=== PATIENT | female | born 1985 | race Native Hawaiian/Other Pacific Islander ===

== ENCOUNTER 2018-05-18 22:17 | Emergency (ER) | payer BC, OTHER ==
--- NOTE | 2018-05-18 22:48 | C.PDOC ---
Time Seen by Provider: 05/18/18 22:48 Chief Complaint (Nursing): Abnormal Skin Integrity Past Medical History Vital Signs: Last Vital Signs Temp 97.4 F L 05/18/18 22:24 Pulse 120 H 05/18/18 22:24 Resp 16 05/18/18 22:24 BP 125/91 H 05/18/18 22:24 Pulse Ox 96 05/18/18 22:24 - Medical History PMH: Diabetes (IDDM), HTN Denies: Atrial Fibrillation, Cardia Arrhythmia, CHF, Hypercholesterolemia, Kidney Stones, Mitral Valve Prolapse, Peripheral Edema, Chronic Kidney Disease Surgical History: Denies: Pacemaker - [facility] Procedures HEMODIALYSIS (04/19/14) INCIS W REM OF FORIEGN BODY OR DEV FROM SKIN & SUBCUT TISSUE (04/19/14) VENOUS CATHETERIZATION FOR RENAL DIALYSIS (04/19/14) Family History: States: Unknown Family Hx - Social History Hx Tobacco Use: Yes Hx Alcohol Use: Yes Hx Substance Use: No - Immunization History Hx Tetanus Toxoid Vaccination: No Hx Influenza Vaccination: Yes Hx Pneumococcal Vaccination: Yes ED Course And Treatment O2 Sat by Pulse Oximetry: 96 Disposition Counseled Patient/Family Regarding: Studies Performed, Diagnosis - Disposition Disposition Time: 22:48
[2018-05-18] MEDS ORDERED: Sodium Chloride 0.9% 1,000 ML IV ONE (22:53)
[2018-05-18] MEDS ORDERED: DiphenhydrAMINE 50 mg/ml Inj IVP STA (22:53)
--- NOTE | 2018-05-18 22:54 | C.PDOC ---
History Of Present Illness pt developed diffuse urticarial rash today., Unknown etiology. Speaking in complete sentences. No f/c, some nausea/. Tolerating po Time Seen by Provider: 05/18/18 22:48 Chief Complaint (Nursing): Abnormal Skin Integrity History Per: Patient History/Exam Limitations: no limitations Onset/Duration Of Symptoms: Hrs Current Symptoms Are (Timing): Still Present Context: Other Possible Cause: Unknown Associated Symptoms: Skin Rash, Itching Home/EMS Treatment: None Severity: Moderate Pain Scale Rating Of: 5 Recent travel outside of the [place]: No Additional History Per: Family Past Medical History Reviewed: Historical Data, Nursing Documentation, Vital Signs Vital Signs: Last Vital Signs Temp 97.4 F L 05/18/18 22:24 Pulse 120 H 05/18/18 22:24 Resp 16 05/18/18 22:24 BP 125/91 H 05/18/18 22:24 Pulse Ox 96 05/18/18 22:24 - Medical History PMH: Diabetes (IDDM), HTN Denies: Atrial Fibrillation, Cardia Arrhythmia, CHF, Hypercholesterolemia, Kidney Stones, Mitral Valve Prolapse, Peripheral Edema, Chronic Kidney Disease Surgical History: Denies: Pacemaker - [facility] Procedures HEMODIALYSIS (04/19/14) INCIS W REM OF FORIEGN BODY OR DEV FROM SKIN & SUBCUT TISSUE (04/19/14) VENOUS CATHETERIZATION FOR RENAL DIALYSIS (04/19/14) Family History: States: No Known Family Hx - Social History Hx Tobacco Use: Yes Hx Alcohol Use: Yes Hx Substance Use: No - Immunization History Hx Tetanus Toxoid Vaccination: No Hx Influenza Vaccination: Yes Hx Pneumococcal Vaccination: Yes Review Of Systems Constitutional: Negative for: Fever, Chills ENT: Negative for: Throat Pain Cardiovascular: Negative for: Chest Pain Respiratory: Negative for: Shortness of Breath Gastrointestinal: Negative for: Abdominal Pain Musculoskeletal: Negative for: Back Pain Skin: Positive for: Rash, Lesions Neurological: Negative for: Weakness Psych: Negative for: Anxiety Physical Exam - Physical Exam Appears: Non-toxic Skin: Warm, Dry, Rash (diffuse uritcaria) Head: Normacephalic Eye(s): bilateral: Normal Inspection Nose: Normal Oral Mucosa: Moist Tongue: Normal Appearing Lips: Normal Appearing Teeth: Normal Dentition Throat: No Erythema, No Exudate, No Drooling Neck: Trachea Midline, Supple Chest: Symmetrical Cardiovascular: Rhythm Regular Respiratory: No Rales, No Rhonchi, No Wheezing Gastrointestinal/Abdominal: Soft, No Tenderness Back: No CVA Tenderness, Other (uritcaria) Extremity: Normal ROM, Other (urticaria) Extremity: Bilateral: Atraumatic Neurological/Psych: Oriented x3, Normal Speech, Normal Cognition Gait: Steady ED Course And Treatment O2 Sat by Pulse Oximetry: 96 Pulse Ox Interpretation: Normal Critical Care Time - Critical Care Note Total Time (in mins): 30 Documented critical care: time excludes all time spent performing seperately billable procedures. Disposition Counseled Patient/Family Regarding: Studies Performed, Diagnosis, Need For Followup, Rx Given - Disposition Referrals: [facility] [Outside] [facility] [Outside] Disposition: HOME/ ROUTINE Disposition Time: 22:54 Condition: FAIR Additional Instructions: Please return if symptoms recur. Also check your sugars at least 4 times a day. Do also use benadryl, pepcid and claritin Prescriptions: Epinephrine [Epipen] 0.3 mg IJ ONCE PRN #2 auto.injct PRN Reason: Anaphylaxis Prednisone [Deltasone] 20 mg PO DAILY #5 tablet Instructions: Skin Rash (DC), Hyperglycemia, Adult (DC) Forms: [facility] (Frisian) - Clinical Impression Clinical Impression: Allergic reaction, Hyperglycemia
[2018-05-19 00:34] VITALS: RESP 20
[2018-05-19] MEDS ORDERED: (Novolin R) Insulin Human Regular 100 units/ml vial SC ONE (01:04)
[2018-05-19] MEDS ORDERED: (Novolin R) Insulin Human Regular 100 units/ml vial ONE (01:06)
[2018-05-19 02:57] VITALS: BP 117/81; PULSE 103; TEMP 98.7; O2SAT 99
== END 2018-05-19 03:01 | disposition home or self-care (01) ==
LOC: C.ER 22:17
DX: T78.40XA Allergy, unspecified, initial encounter (principal); E11.65 Type 2 diabetes mellitus with hyperglycemia; I10 Essential (primary) hypertension; Z79.4 Long term (current) use of insulin; Z72.0 Tobacco use
CPT/HCPCS: 82948; 96361; 96374; 96375; 99285; J2930; J7030

== ENCOUNTER 2018-05-20 10:23 | Emergency (ER) | payer OTHER ==
[2018-05-20 10:37] VITALS: BMI 32.8
[2018-05-20 10:42] VITALS: RESP 18
[2018-05-20] MEDS ORDERED: Dexamethasone 4 mg/1 ml IM STA (11:30)
--- NOTE | 2018-05-20 11:48 | C.PDOC ---
History Of Present Illness 33-year-old female, presents to the emergency department with complaints of an itchy red rash all over her body, that she developed 3 days ago. Patient was seen here for it two days ago and given steroids, however rash continues and she is still very itchy, prompting visit. She denies shortness of breath, fever. Time Seen by Provider: 05/20/18 10:50 Chief Complaint (Nursing): Allergic Reaction History Per: Patient History/Exam Limitations: no limitations Past Medical History Reviewed: Historical Data, Nursing Documentation, Vital Signs Vital Signs: Last Vital Signs Temp 98.2 F 05/20/18 10:37 Pulse 103 H 05/20/18 10:37 Resp 18 05/20/18 10:37 BP 152/91 H 05/20/18 10:37 Pulse Ox 99 05/20/18 10:37 - Medical History PMH: Diabetes (IDDM) Denies: Atrial Fibrillation, Cardia Arrhythmia, CHF, HTN (PT DENIES), Hypercholesterolemia, Kidney Stones, Mitral Valve Prolapse, Peripheral Edema, Chronic Kidney Disease Surgical History: Denies: Pacemaker - [facility] Procedures HEMODIALYSIS (04/19/14) INCIS W REM OF FORIEGN BODY OR DEV FROM SKIN & SUBCUT TISSUE (04/19/14) VENOUS CATHETERIZATION FOR RENAL DIALYSIS (04/19/14) Family History: States: No Known Family Hx - Social History Hx Tobacco Use: Yes Hx Alcohol Use: No Hx Substance Use: No - Immunization History Hx Tetanus Toxoid Vaccination: No Hx Influenza Vaccination: Yes Hx Pneumococcal Vaccination: No Review Of Systems Constitutional: Negative for: Fever, Chills Cardiovascular: Negative for: Chest Pain, Palpitations, Edema Gastrointestinal: Negative for: Nausea, Vomiting Musculoskeletal: Negative for: Back Pain Skin: Positive for: Rash Physical Exam - Physical Exam Appears: Non-toxic, No Acute Distress Skin: Warm, Dry, Rash (Diffusely over body) Head: Atraumatic, Normacephalic Eye(s): bilateral: Normal Inspection, PERRL, EOMI Nose: Normal Oral Mucosa: Moist Lips: Normal Appearing Throat: No Erythema, No Exudate, No Drooling Neck: Normal ROM Chest: Symmetrical Cardiovascular: Rhythm Regular, No Murmur Respiratory: Normal Breath Sounds, No Accessory Muscle Use Gastrointestinal/Abdominal: Soft, No Tenderness Extremity: Normal ROM, No Deformity Neurological/Psych: Oriented x3, Normal Speech ED Course And Treatment O2 Sat by Pulse Oximetry: 99 Pulse Ox Interpretation: Normal (RA) Medical Decision Making Medical Decision Making: Plan: * Benadryl, Decadron, Pepcid * Reassess and Disposition On re-exam, the patient reports improvement of symptoms. Airways are patent. Lungs are CTA, heart is RRR, abdomen is soft, non-tender and the patient is tolerating po well. Ambulatory in the ED with steady gait. Follow up with the medical doctor within 1-2 days. Return if worsened. Disposition - Disposition Referrals: Elmo Rosales MD [Staff Provider] - Disposition: HOME/ ROUTINE Disposition Time: 13:05 Condition: STABLE Additional Instructions: Follow up with the medical doctor within 1-2 days. Return if worsened. Prescriptions: DiphenhydrAMINE [Benadryl] 25 mg PO QID #28 cap Famotidine [Pepcid] 20 mg PO BID #20 tab Instructions: Hives (DC) Forms: [facility] (Nicaraguan), Work Excuse - Clinical Impression Clinical Impression: Allergic urticaria - Scribe Statement The provider has reviewed the documentation as recorded by the Scribe (Rafat Vinson) All medical record entries made by the Scribe were at my direction and personally dictated by me. I have reviewed the chart and agree that the record accurately reflects my personal performance of the history, physical exam, medical decision making, and the department course for this patient. I have also personally directed, reviewed, and agree with the discharge instructions and disposition.
[2018-05-20 13:14] VITALS: BP 136/72; PULSE 69; TEMP 98
[2018-05-20 17:54] VITALS: O2SAT 99
== END 2018-05-20 13:14 | disposition home or self-care (01) ==
LOC: C.ER 10:23
DX: L50.0 Allergic urticaria (principal)
CPT/HCPCS: 96372; 99284; J1100

== ENCOUNTER 2018-10-24 11:28 | Outpatient (CLI) | payer OTHER | END 2018-10-24 11:29 | disposition home or self-care (01) | LOC: C.LAB 11:28 | DX: E11.65 Type 2 diabetes mellitus with hyperglycemia (principal); I10 Essential (primary) hypertension; E04.2 Nontoxic multinodular goiter; E78.2 Mixed hyperlipidemia; E01.8 Other iodine-deficiency related thyroid disorders and allied conditions; E06.3 Autoimmune thyroiditis; E88.81 Metabolic syndrome and other insulin resistance; D51.9 Vitamin B12 deficiency anemia, unspecified; E55.9 Vitamin D deficiency, unspecified; D64.9 Anemia, unspecified; N30.00 Acute cystitis without hematuria; N30.01 Acute cystitis with hematuria ==